=== PATIENT | female | born 1945 | race Caucasian/White ===

== ENCOUNTER → 2024-11-24 09:53 | Outpatient (BNVA) | payer MEDICARE, SELFPAY | PROVIDERS: PCP Physician Assistant; Referring Provider Family Medicine; Visit Provider Specialist | DX: G50.0 Trigeminal neuralgia (principal); G45.9 Transient cerebral ischemic attack, unspecified; G44.52 New daily persistent headache (NDPH); G62.9 Polyneuropathy, unspecified; R26.9 Unspecified abnormalities of gait and mobility | CPT/HCPCS: 36415; 80156; 82607; 83520; 84439; 85651; 99205 ==

== ENCOUNTER 2025-01-20 12:56 | Outpatient (CLI) | payer MEDICARE, SELFPAY ==
--- NOTE | 2025-01-20 13:00 | MR_ITS ---
WS: [id number] MRA HEAD TECHNIQUE: Axial 3-D TOF images obtained with axial images and axial, sagittal, and coronal 2-D reformatted images. CLINICAL INFORMATION: R41.3 - Other amnesia COMPARISON: None. 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 Patent LEFT posterior communicating artery. 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 Basilar artery is patent. Moderate segmental narrowing involving the DOOR TO [employer]OR SELLING AGENT territory bilaterally. Distal vessels remain patent. 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 Distal vessels remain patent with atheromatous disease. Mild segmental narrowing involving the RIGHT M1 segment. Absent RIGHT A1 segment. Normal vascularity to the MADALYN territory. LEFT MCA vessels are patent. MR/MR angio head wo con [id number] IMPRESSION: 1. 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 2. 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 Distal vessels remain patent. 3. Moderate segmental narrowing involving the DOOR TO DOOR SELLING AGENT vessels bilaterally. Distal vessels remain patent. Severe tandem stenosis involving the LEFT P1 segment. 4. 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 5. MADALYN and LEFT MCA territories are patent.
== END 2025-01-20 12:57 | disposition home or self-care (01) ==
LOC: RAD 13:00
PROVIDERS: PCP Nurse Practitioner Family; Visit Provider Specialist
DX: R41.3 Other amnesia (principal); G50.0 Trigeminal neuralgia; I66.23 Occlusion and stenosis of bilateral posterior cerebral arteries; I66.01 Occlusion and stenosis of right middle cerebral artery; Z98.890 Other specified postprocedural states; I66.02 Occlusion and stenosis of left middle cerebral artery
CPT/HCPCS: 70544